=== PATIENT | female | born 1965 | race Caucasian/White ===

== ENCOUNTER 2018-03-20 16:07 | Emergency (ER) | payer MEDICAID, OTHER ==
[~2018-03-20] VITALS: Ht 157.5 cm; Wt 93.9 kg
[2018-03-20 16:11] VITALS: BP 102/68
[2018-03-20] MEDS ORDERED: AZIT250T2 PO (16:56)
[2018-03-20] MEDS ORDERED: ibuprofen tablet 400 MG TABLET PO ONE (17:15)
== END 2018-03-20 17:34 | disposition home or self-care (01) ==
LOC: ER 16:08
DX: J11.1 Influenza due to unidentified influenza virus with other respiratory manifestations (principal); J20.9 Acute bronchitis, unspecified; G89.29 Other chronic pain; F12.90 Cannabis use, unspecified, uncomplicated; Z90.710 Acquired absence of both cervix and uterus; Z88.5 Allergy status to narcotic agent; Z88.6 Allergy status to analgesic agent; Z79.2 Long term (current) use of antibiotics
CPT/HCPCS: 71045; 87502; 87503; 93005; 99284

== ENCOUNTER 2018-10-17 02:21 | Emergency (ER) | payer MEDICAID, OTHER ==
[~2018-10-17] VITALS: Ht 157.5 cm; Wt 90.9 kg
[2018-10-17 03:11] LABS: BASOPHILS # (AUTO) 0.1 X10'3 (0-0.2); BASOPHILS % (AUTO) 0.7 % (0-1); EOSINOPHILS # (AUTO) 0.1 X10'3 (0-0.9); EOSINOPHILS % (AUTO) 0.5 % (0-6); HEMOGLOBIN 15.5 g/dl (12.0-16.0); LYMPHOCYTES # (AUTO) 2.8 X10'3 (1.1-4.8); LYMPHOCYTES % (AUTO) 20.4 % (21-51); MEAN CORPUSCULAR HEMOGLOBIN 31.5 PG (27.0-31.0); MEAN CORPUSCULAR HGB CONC 34.4 g/dL (33.0-36.5); MEAN CORPUSCULAR VOLUME 91.7 FL (78-98); MEAN PLATELET VOLUME 7.7 FL (7.4-10.4); MONOCYTES # (AUTO) 0.6 X10'3 (0-0.9); MONOCYTES % (AUTO) 4.2 % (2-12); NEUTROPHILS # (AUTO) 10.1 X10'3 (1.8-7.7); NEUTROPHILS % (AUTO) 74.2 % (42-75); PLATELET COUNT 321 X10'3 (140-440); RED BLOOD COUNT 4.91 X10'6 (4.20-5.60); RED CELL DISTRIBUTION WIDTH 13.2 % (11.5-14.5); WHITE BLOOD COUNT 13.6 X10'3 (4.5-11.0)
[2018-10-17 03:25] LABS: ALANINE AMINOTRANSFERASE 85 U/L (12-78); ALBUMIN 4.1 G/DL (3.4-5.0); ALBUMIN/GLOBULIN RATIO 1.1 (1.1-1.5); ALKALINE PHOSPHATASE 71 IU/L (46-116); ANION GAP 15 (8-16); ASPARTATE AMINO TRANSFERASE 44 U/L (10-37); BILIRUBIN,TOTAL 0.7 MG/DL (0.1-1.0); BLOOD UREA NITROGEN 14 MG/DL (7-18); BUN/CREATININE RATIO 18.2 (6.6-38.0); CALCIUM 9.3 MG/DL (8.5-10.1); CHLORIDE 103 MMOL/L (99-107); CREATININE 0.77 MG/DL (0.40-0.90); GLUCOSE 164 MG/DL (70-104); SODIUM 138 MMOL/L (135-145); TOTAL CARBON DIOXIDE 20.5 MMOL/L (24-32); eGFR 78 ML/MIN
[2018-10-17] MEDS ORDERED: normal saline 1000ml 1,000 ML IV ONE (03:29)
[2018-10-17] MEDS ORDERED: ondansetron/PF 4mg/2ml inj IV ONE (03:30)
[2018-10-17] MEDS ORDERED: morphine 2 MG/ML inj. syringe IV PRN (03:30)
[2018-10-17] MEDS ORDERED: normal saline 1000ML IV soln IVB ONE ×2 (03:30→04:25)
[2018-10-17] MEDS ORDERED: ketorolac trometh. 30mg/ml inj. IV ONE (03:30)
[2018-10-17] MEDS ORDERED: tamsulosin 0.4mg capsule PO ONE (03:30)
[2018-10-17 03:35] LABS: POTASSIUM 3.7 MMOL/L (3.5-5.1)
[2018-10-17] MEDS ORDERED: sildenafil citrate 20mg tablet PO ONE (03:35)
[2018-10-17] MEDS ORDERED: sildenafil citrate 20mg tablet PO SCH (03:35)
[2018-10-17 03:41] LABS: LIPASE 78 U/L (73-393)
[2018-10-17 03:53] LABS: ETHANOL < 0.010 GM/DL (0.0-0.010)
[2018-10-17 04:42] LABS: CLARITY,URINE TURBID (Clear); COLOR,URINE YELLOW (Yellow); GLUCOSE, URINE NEGATIVE (Neg); KETONES,URINE 15 mg/dl (Neg); LEUKOCYTE ESTERASE ,URINE NEGATIVE (Neg); NITRITES, URINE NEGATIVE (Neg); OCCULT BLOOD,URINE NEGATIVE (Neg); PH,URINE >=9.0 (4.8-8.0); PROTEIN,URINE 30 mg/dl (Neg); UROBILINOGEN,URINE 0.2 E.U/dL (0.2-1.0)
[2018-10-17 04:47] LABS: UA COLLECTION TYPE CLN CATCH MIDSTREAM
[2018-10-17 04:48] LABS: AMORPHOUS PHOSPHATES 3+; BACTERIA,URINE NONE SEEN /HPF (Neg); MUCUS STRANDS NONE SEEN /LPF (Neg); RBC,URINE NONE SEEN /HPF (0-2); SQUAMOUS EPITHELIAL CELL,UR FEW /LPF (FEW); WBC,URINE NONE SEEN /HPF (0-4)
[2018-10-17 04:53] LABS: URINE AMPHETAMINE SCREEN NEGATIVE (Neg); URINE BARBITUATE SCREEN NEGATIVE (Neg); URINE BENZODIAZEPINES SCREEN NEGATIVE (Neg); URINE CANNABINOID SCREEN POSITIVE (Neg); URINE COCAINE SCREEN NEGATIVE (Neg); URINE METHADONE SCREEN NEGATIVE (Neg); URINE OPIATE SCREEN POSITIVE (Neg); URINE PHENCYCLIDINE SCREEN NEGATIVE (Neg)
--- NOTE | 2018-10-17 06:32 | NUR ---
PT IS GOING TO CT VIA WHEELCHAIR WITH SENIOR ENVIRONMENTAL SCIENTIST NOW PER ORDERS, REVIEWED PREVIOUS ORDERS WITH DR PARKER AND CANCELED THIRD LITER BOLUS OF NS PER DR PARKER, PT HAVING REDUCED PAIN NOW 2/, WILL CONTINUE TO MONITOR PT WHILE AWAIT CT RESULTS.
--- NOTE | 2018-10-17 06:45 | NUR ---
PT BACK IN BED [address], PLACED BACK ON MONITOR AND IV FLUIDS, PT IS RESTING COMFORTABLY, SPOUSE HAS LEFT BEDSIDE AT THIS TIME, WILL CONTINUE TO MONITOR PT WHILE WAITING FOR CT RESULTS.
[2018-10-17] MEDS ORDERED: ONDA4TAB6 PO (07:21)
[2018-10-17 07:28] VITALS: BP 128/78
[2018-10-17] MEDS ORDERED: metoclopramide 5 mg/ml inj IV ONE (07:30)
== END 2018-10-17 07:39 | disposition home or self-care (01) ==
LOC: ER 02:22
DX: R10.32 Left lower quadrant pain (principal); R11.2 Nausea with vomiting, unspecified; G89.29 Other chronic pain; F10.99 Alcohol use, unspecified with unspecified alcohol-induced disorder; F12.90 Cannabis use, unspecified, uncomplicated; Z90.710 Acquired absence of both cervix and uterus; Z88.5 Allergy status to narcotic agent; Z88.8 Allergy status to other drugs, medicaments and biological substances; Z79.899 Other long term (current) drug therapy; Y90.9 Presence of alcohol in blood, level not specified
CPT/HCPCS: 36415; 74176; 80053; 80305; 80320; 81001; 83690; 85025; 96361; 96374; 96375; 99284; J1885; J2270; J2405; J2765; J7030